=== PATIENT | male | born 1980 ===

== ENCOUNTER 2022-04-03 17:31 | Emergency (ER) | payer SELFPAY ==
[2022-04-03] MEDS ORDERED: HYDROmorphone 1 MG/ML Syringe IVPUSH ONE (17:38)
[2022-04-03] MEDS ORDERED: Sodium Chloride 0.9% 1,000 ML IV ONE (17:38)
[2022-04-03] MEDS: Sodium Chloride 0.9% 10 ML Syringe FLUSH PRN ×2 (17:53→18:59)
[2022-04-03] MEDS ORDERED: Midazolam 1 MG/ML 2 ML SDV IVPUSH ONE (18:28)
[2022-04-03] MEDS ORDERED: Diphtheria,Pertussis(Acell),Tetanus Vaccine 0.5 ML Syringe IM ONE (18:59)
[2022-04-03] MEDS ORDERED: Diphtheria,Pertussis(Acell),Tetanus Vaccine 0.5 ML Syringe ONE (19:07)
== END 2022-04-03 20:32 | disposition home or self-care (01) ==
LOC: DL.ED 17:31 → MERGE 17:31 → DL.ED 20:32
DX: S50.852A Superficial foreign body of left forearm, initial encounter (principal); Z23 Encounter for immunization; W45.8XXA Other foreign body or object entering through skin, initial encounter
CPT/HCPCS: 73090; 90471; 90715; 96361; 96365; 96375; 99283; J1170; J2250; J3370; J3490; J7030; J7040